=== PATIENT | female | born 1975 | race African-American/Black ===

== ENCOUNTER 2017-03-29 16:51 | Emergency (ER) | payer SELFPAY ==
[2015-02-15 07:26] VITALS: BP 140/91
[~2017-03-29] VITALS: Ht 160 cm; Wt 81.6 kg
[~2017-03-29 16:51] MED LIST: HYDR12.58 PO; IBUP-1060 PO; ONDA4TAB10 PO; OSEL75CA PO
[2017-03-29] MEDS ORDERED: HYDR-971 PO (17:47)
[2017-03-29] MEDS ORDERED: NAPR500T8 PO (17:47)
[2017-03-29] MEDS ORDERED: GABA-586 PO (17:47)
[2017-03-29] MEDS ORDERED: METH4TAB2 PO (17:47)
--- NOTE | 2017-03-29 17:47 | PHYS DOC ---
Past Medical History Past Medical History: Hypertension Additional Past Medical Histor: PSORIASIS, HEART MURMUR Past Surgical History: No Surgical History Alcohol Use: Occasionally Drug Use: Marijuana Adult General Chief Complaint Chief Complaint: SKIN PROBLEM HPI HPI Patient is a 41 year old female with history of psoriasis, hypertension, chronic bilateral lower extremity pain, and chronic pain from psoriasis who presents today complaining of moderate to severe chronic pain throughout her body especially her bilateral lower extremities due to psoriasis. She states she is not even able to ambulate, she states she has had to crawl in her house due to pain amazingly she drove herself to the ED and has ambulated in the ED. Patient denies any injuries. Review of Systems Review of Systems Constitutional: Denies fever or chills [] Eyes: Denies change in visual acuity, redness, or eye pain [] HENT: Denies nasal congestion or sore throat [] Respiratory: Denies cough or shortness of breath [] Cardiovascular: No additional information not addressed in HPI [] GI: Denies abdominal pain, nausea, vomiting, bloody stools or diarrhea [] : Denies dysuria or hematuria [] Musculoskeletal: Chronic musculoskeletal pain due to psoriasis Integument: Denies rash or skin lesions [] Neurologic: Denies headache, focal weakness or sensory changes [] Endocrine: Denies polyuria or polydipsia [] Allergies Allergies Allergies Coded Allergies Type Severity Reaction Last Updated Verified Penicillins Allergy Intermediate Hives 06/12/14 No clindamycin Allergy Intermediate Hives 06/12/14 No morphine Allergy Intermediate Hives 06/12/14 No doxycycline Allergy Unknown Itching&welts, Nausea. 12/12/14 Yes Physical Exam Physical Exam Constitutional: Well developed, well nourished, no acute distress, non-toxic appearance. [] HENT: Normocephalic, atraumatic, bilateral external ears normal, oropharynx moist, no oral exudates, nose normal. [] Eyes: PERRLA, EOMI, conjunctiva normal, no discharge. [] Neck: Normal range of motion, no tenderness, supple, no stridor. [] Cardiovascular:Heart rate regular rhythm, no murmur [] Lungs & Thorax: Bilateral breath sounds clear to auscultation [] Abdomen: Bowel sounds normal, soft, no tenderness, no masses, no pulsatile masses. [] Skin: Warm, dry, no erythema, no rash. [] Back: No tenderness, no CVA tenderness. [] Extremities: No tenderness, no cyanosis, no clubbing, ROM intact, no edema. [] Neurologic: Alert and oriented X 3, normal motor function, normal sensory function, no focal deficits noted. [] Psychologic: Affect normal, judgement normal, mood normal. [] Current Patient Data Vital Signs Vital Signs Date Time Temp Pulse Resp B/P (MAP) Pulse Ox O2 Delivery O2 Flow Rate FiO2 03/29/17 17:03 98.1 76 20 164/89 (114) 98 Room Air 98.1 EKG EKG [] Radiology/Procedures Radiology/Procedures [] Course & Med Decision Making Course & Med Decision Making Pertinent Labs and Imaging studies reviewed. (See chart for details) This is a 41-year-old female patient who presents to the ED with complaints of chronic musculoskeletal pain throughout her body due to psoriasis. See history of present illness for further information. Patient is requesting something for pain stating she has taken multiple sodv-ztp-vhhxlst medications with no relief. Informed patient I will not send her home with any prescription narcotic medicines. I offered her hydrocodone in the ED. She states she is driving. Gave her prescription for 2 hydrocodone tablets, naproxen gabapentin and provided instructions to follow-up with a pain clinic, PCP, bill poster installer and chief controller tower. We did give her the doctor's list. Dragon Disclaimer Dragon Disclaimer This electronic medical record was generated, in whole or in part, using a voice recognition dictation system. Departure Departure Impression: Primary Impression: Chronic musculoskeletal pain Disposition: HOME, SELF-CARE Condition: STABLE Referrals: NO PCP (PCP) MINH AGUAYO MD Follow-up with the pain clinic as soon as you can FUENTES KILPATRICK MD Follow-up for chronic psoriasis Patient Instructions: Musculoskeletal Pain Additional Instructions: You were seen for chronic musculoskeletal pain. We recommend you follow-up with pain clinic doctor as soon as possible. You also need to establish care with a chief controller tower for chronic psoriasis as well as a bill poster installer and a primary care doctor. Scripts Naproxen (NAPROXEN) 500 Mg Tablet.dr 1 TAB PO BID, #60 TAB 2 Refills Prov: BRANDIE BURRELL APRN 03/29/17 Gabapentin (GABAPENTIN) 300 Mg Capsule 300 MG PO TID, #30 CAP Prov: BRANDIE BURRELL APRN 03/29/17 Methylprednisolone (MEDROL) 4 Mg Tab.ds.pk 1 PKG PO UD, #1 PKG Prov: BRANDIE BURRELL APRN 03/29/17 Hydrocodone/Apap 5-325 (NORCO 5-325 TABLET) 1 Each Tablet 1-2 TAB PO Q4-6HRS, #2 TAB Prov: BRANDIE BURRELL APRN 03/29/17 BRANDIE BURRELL APRN Mar 29, 2017 17:47
== END 2017-03-29 18:05 | disposition home or self-care (01) ==
LOC: ER 16:51
DX: G89.29 Other chronic pain (principal); M79.1 Myalgia; L40.9 Psoriasis, unspecified; I10 Essential (primary) hypertension; F12.10 Cannabis abuse, uncomplicated; Z88.0 Allergy status to penicillin; Z88.1 Allergy status to other antibiotic agents; Z88.6 Allergy status to analgesic agent
CPT/HCPCS: 99283

== ENCOUNTER 2018-05-11 18:09 | Emergency (ER) | payer SELFPAY ==
[~2018-05-11] VITALS: Ht 160 cm; Wt 81.6 kg
[~2018-05-11 18:09] MED LIST changes: +GABA-586 PO; +HYDR-971 PO; +METH4TAB2 PO; +NAPR500T8 PO
[2018-05-11 18:50] VITALS: BP 138/88
[2018-05-11] MEDS ORDERED: IV NORMAL SALINE 1000ML BAG 1,000 ML IV SCH (19:51)
[2018-05-11 20:01] LABS: BILIRUBIN,URINE NEGATIVE (NEG); CLARITY,URINE CLOUDY; COLOR,URINE YELLOW; NITRITE,URINE NEGATIVE (NEG); PH,URINE 6.5; PROTEIN,URINE NEGATIVE (NEG-TRACE); UROBILINOGEN,URINE 0.2 mg/dL (0.2 mg/dL)
--- NOTE | 2018-05-11 20:02 | PHYS DOC ---
Past Medical History Past Medical History: Hypertension Additional Past Medical Histor: PSORIASIS, HEART MURMUR Past Surgical History: No Surgical History Smoking: Cigarettes, Less than 1pk/day Alcohol Use: Occasionally Drug Use: None Adult General Chief Complaint Chief Complaint: CHEST PAIN [facility] HPI Patient is a 42 year-old female who presents to the emergency department for evaluation. She states that she "just hasn't felt well" for the past week. She reports generalized diffuse myalgias. She has had some chest pain as well, across her entire chest. There are no alleviating or exacerbating factors to her chest discomfort, exertion or deep breathing did not seem to worsen her pain. There is no significant radiation of her pain. She has had some generalized myalgias, but states her chest discomfort feels somewhat different. She denies significant shortness of breath, dizziness, lightheadedness, numbness, focal weakness. She states that she has been urinating less frequently than normal, but has not had any dysuria. Other than as stated above, there are no alleviating or exacerbating factors to her symptoms. Patient denies a family history of premature onset coronary artery disease. Review of Systems Review of Systems Constitutional: Denies fever or chills [] Eyes: Denies change in visual acuity, redness, or eye pain [] HENT: Denies nasal congestion or sore throat [] Respiratory: Denies cough or shortness of breath [] Cardiovascular: No additional information not addressed in HPI [] GI: Denies abdominal pain, nausea, vomiting, bloody stools or diarrhea [] : Denies dysuria or hematuria [] Musculoskeletal: Denies back pain or joint pain [] Integument: Denies rash or skin lesions [] Neurologic: Denies headache, focal weakness or sensory changes [] Endocrine: Denies polyuria or polydipsia [] All other systems were reviewed and found to be within normal limits, except as documented in this note. Current Medications Current Medications Current Medications Medications (Trade) Dose Ordered Sig/Reggie Start Time Stop Time Status Last Admin Dose Admin Sodium Chloride 1,000 ml @ 1,000 mls/hr Q1H 05/11/18 19:51 05/11/18 20:50 DC 05/11/18 20:04 1,000 MLS/HR Allergies Allergies Allergies Coded Allergies Type Severity Reaction Last Updated Verified Penicillins Allergy Intermediate Hives 06/12/14 No clindamycin Allergy Intermediate Hives 06/12/14 No morphine Allergy Intermediate Hives 06/12/14 No doxycycline Allergy Unknown Itching&welts, Nausea. 12/12/14 Yes Physical Exam Physical Exam PHYSICAL EXAM: CONSTITUTIONAL: Well developed, well nourished HEAD: normocephalic, atraumatic EENT: PERRL, EOMI. Conjunctivae normal color, sclerae non-icteric; moist mucous membranes. NECK: Supple, non-tender; no meningismus. LUNGS: Lungs CTA, breathing even and unlabored. Normal air movement. HEART: Regular rate and rhythm, no murmur CHEST: No deformity; there is diffuse tenderness to palpation of the anterior chest wall, which is not exactly reproduce the patient's pain. ABDOMEN: The abdomen is soft, and non-tender, no masses or bruits. EXTREM: Normal ROM; no deformity, no calf tenderness. Normal pulses palpable in all extremities. There is no pedal edema. SKIN: No rash; no diaphoresis NEURO: Alert; normal speech and cognition; CN's grossly intact; strength grossly intact without focal deficit. BACK: No CVA TTP. Current Patient Data Vital Signs Vital Signs Date Time Temp Pulse Resp B/P (MAP) Pulse Ox O2 Delivery O2 Flow Rate FiO2 05/11/18 18:50 98.1 101 20 138/88 (105) 99 Room Air 98.1 Lab Values Laboratory Tests Test 05/11/18 19:10 05/11/18 19:51 Urine Collection Type Unknown Urine Color Yellow Urine Clarity Cloudy Urine pH 6.5 Urine Specific [place] 1.020 Urine Protein Negative mg/dL (NEG-TRACE) Urine Glucose (UA) Negative mg/dL (NEG) Urine Ketones (Stick) Negative mg/dL (NEG) Urine Blood Negative (NEG) Urine Nitrite Negative (NEG) Urine Bilirubin Negative (NEG) Urine Urobilinogen Dipstick 0.2 mg/dL (0.2 mg/dL) Urine Leukocyte Esterase Small (NEG) Urine RBC 0 /HPF (0-2) Urine WBC Occ /HPF (0-4) Urine Squamous Epithelial Cells Mod /LPF Urine Bacteria 0 /HPF (0-FEW) Urine Mucus Mod /LPF Urine Test Negative (NEG) White Blood Count 5.3 x10^3/uL (4.0-11.0) Red Blood Count 3.56 x10^6/uL (3.50-5.40) Hemoglobin 11.6 g/dL (12.0-15.5) L Hematocrit 34.6 % (36.0-47.0) L Mean Corpuscular Volume 97 fL (79-100) Mean Corpuscular Hemoglobin 33 pg (25-35) Mean Corpuscular Hemoglobin Concent 34 g/dL (31-37) Red Cell Distribution Width 13.2 % (11.5-14.5) Platelet Count 190 x10^3/uL (140-400) Neutrophils (%) (Auto) 45 % (31-73) Lymphocytes (%) (Auto) 44 % (24-48) Monocytes (%) (Auto) 9 % (0-9) Eosinophils (%) (Auto) 2 % (0-3) Basophils (%) (Auto) 1 % (0-3) Neutrophils # (Auto) 2.4 x10^3uL (1.8-7.7) Lymphocytes # (Auto) 2.3 x10^3/uL (1.0-4.8) Monocytes # (Auto) 0.5 x10^3/uL (0.0-1.1) Eosinophils # (Auto) 0.1 x10^3/uL (0.0-0.7) Basophils # (Auto) 0.0 x10^3/uL (0.0-0.2) Erythrocyte Sedimentation Rate 38 (0-25) H Sodium Level 139 mmol/L (136-145) Potassium Level 3.3 mmol/L (3.5-5.1) L Chloride Level 105 mmol/L (98-107) Carbon Dioxide Level 32 mmol/L (21-32) Anion Gap 2 (6-14) L Blood Urea Nitrogen 13 mg/dL (7-20) Creatinine 1.0 mg/dL (0.6-1.0) Estimated GFR (Cockcroft-Gault) 73.9 BUN/Creatinine Ratio 13 (6-20) Glucose Level 96 mg/dL (70-99) Calcium Level 8.9 mg/dL (8.5-10.1) Magnesium Level 1.9 mg/dL (1.8-2.4) Total Bilirubin 0.2 mg/dL (0.2-1.0) Aspartate Amino Transferase (AST) 14 U/L (15-37) L Alanine Aminotransferase (ALT) 12 U/L (14-59) L Alkaline Phosphatase 86 U/L (46-116) Creatine Kinase 80 U/L (26-192) Creatine Kinase MB (Mass) < 0.5 ng/mL (0.0-3.6) Creatine Kinase MB Relative Index % (0-4) Troponin I Quantitative < 0.017 ng/mL (0.000-0.055) C-Reactive Protein, Quantitative 2.2 mg/L (0-3.3) JN-Nox-Y-Type Natriuretic Peptide 42 pg/mL (0-124) Total Protein 7.9 g/dL (6.4-8.2) Albumin 3.4 g/dL (3.4-5.0) Albumin/Globulin Ratio 0.8 (1.0-1.7) L Lipase 264 U/L (73-393) Thyroid Stimulating Hormone (TSH) 1.299 uIU/mL (0.358-3.74) Free Thyroxine 1.00 ng/dL (0.76-1.46) Laboratory Tests 05/11/18 19:51 Laboratory Tests 05/11/18 19:51 EKG EKG Normal sinus rhythm a rate of 86 bpm, normal axis, normal intervals, nonspecific ST/T changes. Radiology/Procedures Radiology/Procedures [ER physician preliminary chest x-ray interpretation: No acute disease.] Course & Med Decision Making Course & Med Decision Making Pertinent Labs and Imaging studies reviewed. (See chart for details) [I had an extensive discussion with the patient about the limitations of ER cardiac evaluation in definitively ruling out acute coronary syndrome. We discussed limitation of the ER evaluation and a singe ED troponin in r/o AMI, and the risks involved in missed diagnosis of acute coronary syndrome including or permanent debility. I recommended overnight observation for further formal cardiac evaluation to rule out acute coronary syndrome. After expressing understanding of the limitations of ER cardiac evaluation, as well as the risks of missed diagnosis, the patient declined further cardiac evaluation at this time. The patient was mentally competent, and given opportunity to ask questions about the diagnosis and recommended plan of care. I stressed the importance of outpatient follow-up, and returning to the emergency department for new or worsening symptoms, or if the patient is agreeable to undergo further cardiac evaluation. Clinical suspicion for acute coronary syndrome is extremely low. Patient remains stable. I discussed test results, the need for close follow-up, and return precautions.] Dragon Disclaimer Dragon Disclaimer This electronic medical record was generated, in whole or in part, using a voice recognition dictation system. Departure Departure Impression: Primary Impression: Myalgia Additional Impression: Atypical chest pain Disposition: HOME, SELF-CARE Condition: STABLE Referrals: NO PCP (PCP) Patient Instructions: Chest Pain (Nonspecific), Myalgia, Adult Additional Instructions: Ibuprofen 400-600 mg every 6 hours may help improve your symptoms. Applying a heating pad to the affected area may help improve your symptoms. The prescribed medications may cause drowsiness-use caution while taking. Use the provided list of primary care providers to help schedule a follow-up appointment with her primary care provider for further evaluation of your symptoms. Scripts Cyclobenzaprine Hcl (CYCLOBENZAPRINE HCL) 10 Mg Tablet 1 TAB PO TID PRN for PAIN, #30 TAB Prov: CHRISTINA REDDY MD 05/11/18 Problem Qualifiers CHRISTINA REDDY MD May 11, 2018 20:02
[2018-05-11 20:03] LABS: BASO % 1 % (0-3); EOS # 0.1 x10^3/uL (0.0-0.7); EOS % 2 % (0-3); HEMATOCRIT 34.6 % (36.0-47.0); HEMOGLOBIN 11.6 g/dL (12.0-15.5); LYMPH # 2.3 x10^3/uL (1.0-4.8); LYMPH % 44 % (24-48); MEAN CORPUSCULAR HEMOGLOBIN 33 pg (25-35); MEAN CORPUSCULAR HGB CONC 34 g/dL (31-37); MEAN CORPUSCULAR VOLUME 97 fL (79-100); MONO # 0.5 x10^3/uL (0.0-1.1); MONO % 9 % (0-9); NEUT # 2.4 x10^3uL (1.8-7.7); NEUT % 45 % (31-73); PLATELET COUNT 190 x10^3/uL (140-400); RED BLOOD COUNT 3.56 x10^6/uL (3.50-5.40); RED CELL DISTRIBUTION WIDTH 13.2 % (11.5-14.5); WHITE BLOOD COUNT 5.3 x10^3/uL (4.0-11.0)
[2018-05-11 20:14] LABS: BACTERIA,URINE 0 /HPF (0-FEW); RBC,URINE 0 /HPF (0-2); SQUAMOUS EPITHELIAL CELL,UR MOD /LPF; WBC,URINE OCC /HPF (0-4)
[2018-05-11 20:17] LABS: C-REACTIVE PROTEIN 2.2 mg/L (0-3.3); CALCIUM 8.9 mg/dL (8.5-10.1); GFR 73.9; POTASSIUM 3.3 mmol/L (3.5-5.1)
[2018-05-11 20:19] LABS: U PREG PATIENT NEGATIVE (NEG)
[2018-05-11 20:22] LABS: ALBUMIN 3.4 g/dL (3.4-5.0); ALBUMIN/GLOBULIN RATIO 0.8 (1.0-1.7); MAGNESIUM 1.9 mg/dL (1.8-2.4); TOTAL BILIRUBIN 0.2 mg/dL (0.2-1.0); TOTAL PROTEIN 7.9 g/dL (6.4-8.2)
[2018-05-11 20:28] LABS: THYROID STIM HORMONE (TSH) 1.299 uIU/mL (0.358-3.74)
[2018-05-11 20:32] LABS: CREATINE KINASE 80 U/L (26-192)
--- NOTE | 2018-05-11 20:42 | EKG ---
[facility] [address] [place] [address] Test Date: 2018-05-11 Test Time: 19:08:27 Pat Name: ADINA MEYER Department: Room: Gender: F Medical Data Analyst: : 1975 Requested By: CHRISTINA REDDY Order Number: [id number] Reading MD: Asael Locke MD Measurements Intervals [place] Rate: 86 P: 33 LA: 184 QRS: 7 QRSD: 76 T: 38 QT: 342 QTc: 412 Interpretive Statements SINUS RHYTHM LEFT ATRIAL ABNORMALITY QRS(T) CONTOUR ABNORMALITY CONSIDER ANTEROSEPTAL INFARCT ABNORMAL ECG Electronically Signed On 05-12-2018 15:29:38 CDT by Asael Locke MD
[2018-05-11] MEDS ORDERED: CYCL10TA2 PO (21:47)
[2018-05-11] MEDS ORDERED: KETOROLAC 30 MG/ML VIAL. IV ONE (22:00)
[2018-05-11] MEDS ORDERED: ONDANSETRON PF 4 MG/2 ML VIAL. IV ONE (22:00)
--- NOTE | 2018-05-12 08:27 | RAD ---
EXAM: PA and lateral views of the chest DATE: 05/11/2018 8:00 PM INDICATION: CHEST PAIN AND NO ABLE TO URINATE SINCE WEDNESDAY , MUSCLE SORENESS x1 wks COMPARISON: No Prior FINDINGS: The heart is not enlarged. Mediastinal and hilar contours are normal. No focal parenchymal airspace opacity. No pleural effusion or pneumothorax. IMPRESSION: 1. No radiographic evidence for acute cardiopulmonary process. Electronically signed by: Pascual Scales MD (05/12/2018 8:23 AM) [facility]
== END 2018-05-11 22:07 | disposition home or self-care (01) ==
LOC: ER 18:09
DX: R07.89 Other chest pain (principal); M79.1 Myalgia; I10 Essential (primary) hypertension; F17.210 Nicotine dependence, cigarettes, uncomplicated; Z88.0 Allergy status to penicillin; Z88.1 Allergy status to other antibiotic agents; Z88.5 Allergy status to narcotic agent
CPT/HCPCS: 36415; 71046; 80053; 81001; 81025; 82553; 83690; 83735; 83880; 84439; 84443; 84484; 85025; 85651; 86140; 93005; 99285; J1885; J2405; J7030

== ENCOUNTER 2019-08-09 05:30 | Emergency (ER) | payer SELFPAY ==
[~2019-08-09] VITALS: Ht 160 cm; Wt 82.6 kg
[~2019-08-09 05:30] MED LIST changes: +CYCL10TA2 PO; -GABA-586 PO; +GABA300C18 PO; +HYDR-3164 PO; -HYDR-971 PO
[2019-08-09] MEDS ORDERED: NITROGLYCERIN SUBLINGUAL 0.4 MG BOTTLE OF 25. SL PRN (05:45)
--- NOTE | 2019-08-09 05:49 | PHYS DOC ---
Past Medical History Past Medical History: Hypertension Additional Past Medical Histor: PSORIASIS, HEART MURMUR (SENIA DAVIS Jr., DO) Past Surgical History: No Surgical History (SENIA DAVIS Jr., DO) Alcohol Use: Occasionally Drug Use: None (SENIA DAVIS Jr., DO) Adult General Chief Complaint Chief Complaint: CHEST PAIN-NON CARDIAC NATURE HPI HPI Patient is a 44-year-old female who presents with complaint of midsternal chest pain that started 2 days ago. Patient states that pain is been fairly constant but has been waxing and waning. She rates pain at a 9 out of 10. She does indicate that she has had some nausea but no vomiting. She denies any diapho resis. She describes pain as sharp in nature. She states that nothing is improving the pain. She does indicate that she has a family history of cardiac disease.[] (SENIA DAVIS Jr., DO) Review of Systems Review of Systems Constitutional: Denies fever or chills [] Respiratory: Denies cough or shortness of breath [] Cardiovascular: No additional information not addressed in HPI [] GI: Denies abdominal pain, vomiting or diarrhea [] Neurologic: Denies headache, focal weakness or sensory changes [] All other systems were reviewed and found to be within normal limits, except as documented in this note. (SENIA DAVIS Jr., DO) Current Medications Current Medications Current Medications Medications (Trade) Dose Ordered Sig/Reggie Start Time Stop Time Status Last Admin Dose Admin Info (CONTRAST GIVEN -- Rx MONITORING) 1 each PRN DAILY PRN 08/09/19 07:15 08/11/19 07:14 Iohexol (Omnipaque 350 Mg/ml) 100 ml 1X ONCE 08/09/19 07:15 08/09/19 07:16 DC 08/09/19 07:27 100 ML Nitroglycerin (Nitrostat) 0.4 mg PRN Q5MIN PRN 08/09/19 05:45 08/10/19 05:44 08/09/19 05:55 0.4 MG Sodium Chloride 1,000 ml @ 1,000 mls/hr Q1H 08/09/19 06:00 08/09/19 06:59 DC (JENFIFER RIVERA DO) Allergies Allergies Allergies Coded Allergies Type Severity Reaction Last Updated Verified Penicillins Allergy Intermediate Hives 06/12/14 No clindamycin Allergy Intermediate Hives 06/12/14 No morphine Allergy Intermediate Hives 06/12/14 No doxycycline Allergy Unknown Itching&welts, Nausea. 12/12/14 Yes (JENIFFER RIVERA DO) Physical Exam Physical Exam Constitutional: Well developed, well nourished, no acute distress, non-toxic appearance. [] HENT: Normocephalic, atraumatic, bilateral external ears normal, oropharynx moist, no oral exudates, nose normal. [] Eyes: PERRLA, EOMI, conjunctiva normal, no discharge. [] Neck: Normal range of motion, no tenderness, supple. [] Cardiovascular: Regular rate and rhythm[] Lungs & Thorax: Bilateral breath sounds clear to auscultation [] Abdomen: Bowel sounds normal, soft, no tenderness. [] Skin: Warm, dry, no erythema, no rash. [] Extremities: No tenderness, no cyanosis, no clubbing, ROM intact. [] Neurologic: Alert and oriented X 3, no focal deficits noted. [] (SENIA DAVIS Jr., DO) Current Patient Data Vital Signs Vital Signs Date Time Temp Pulse Resp B/P (MAP) Pulse Ox O2 Delivery O2 Flow Rate FiO2 08/09/19 06:41 89 17 170/115 (133) 97 Room Air 08/09/19 05:31 97.7 97.7 (JENIFFER RIVERA DO) Lab Values Laboratory Tests Test 08/09/19 05:40 08/09/19 06:00 08/09/19 06:05 White Blood Count 6.7 x10^3/uL (4.0-11.0) Red Blood Count 4.06 x10^6/uL (3.50-5.40) Hemoglobin 12.8 g/dL (12.0-15.5) Hematocrit 38.9 % (36.0-47.0) Mean Corpuscular Volume 96 fL (79-100) Mean Corpuscular Hemoglobin 32 pg (25-35) Mean Corpuscular Hemoglobin Concent 33 g/dL (31-37) Red Cell Distribution Width 14.3 % (11.5-14.5) Platelet Count 216 x10^3/uL (140-400) Neutrophils (%) (Auto) 41 % (31-73) Lymphocytes (%) (Auto) 49 % (24-48) H Monocytes (%) (Auto) 7 % (0-9) Eosinophils (%) (Auto) 3 % (0-3) Basophils (%) (Auto) 1 % (0-3) Neutrophils # (Auto) 2.7 x10^3/uL (1.8-7.7) Lymphocytes # (Auto) 3.3 x10^3/uL (1.0-4.8) Monocytes # (Auto) 0.5 x10^3/uL (0.0-1.1) Eosinophils # (Auto) 0.2 x10^3/uL (0.0-0.7) Basophils # (Auto) 0.1 x10^3/uL (0.0-0.2) D-Dimer (Ara) 0.74 ug/mlFEU (0.00-0.50) H Sodium Level 144 mmol/L (136-145) Potassium Level 3.4 mmol/L (3.5-5.1) L Chloride Level 107 mmol/L (98-107) Carbon Dioxide Level 28 mmol/L (21-32) Anion Gap 9 (6-14) Blood Urea Nitrogen 13 mg/dL (7-20) Creatinine 0.9 mg/dL (0.6-1.0) Estimated GFR (Cockcroft-Gault) 82.7 BUN/Creatinine Ratio 14 (6-20) Glucose Level 103 mg/dL (70-99) H Calcium Level 8.9 mg/dL (8.5-10.1) Magnesium Level 1.6 mg/dL (1.8-2.4) L Total Bilirubin 0.2 mg/dL (0.2-1.0) Aspartate Amino Transferase (AST) 16 U/L (15-37) Alanine Aminotransferase (ALT) 10 U/L (14-59) L Alkaline Phosphatase 94 U/L (46-116) Troponin I Quantitative < 0.017 ng/mL (0.000-0.055) LH-Bqb-M-Type Natriuretic Peptide 82 pg/mL (0-124) Total Protein 8.3 g/dL (6.4-8.2) H Albumin 3.4 g/dL (3.4-5.0) Albumin/Globulin Ratio 0.7 (1.0-1.7) L Urine Collection Type Unknown Urine Color Yellow Urine Clarity Clear Urine pH 7.0 Urine Specific [place] 1.020 Urine Protein Negative mg/dL (NEG-TRACE) Urine Glucose (UA) Negative mg/dL (NEG) Urine Ketones (Stick) Negative mg/dL (NEG) Urine Blood Negative (NEG) Urine Nitrite Negative (NEG) Urine Bilirubin Negative (NEG) Urine Urobilinogen Dipstick 0.2 mg/dL (0.2 mg/dL) Urine Leukocyte Esterase Small (NEG) Urine RBC 0 /HPF (0-2) Urine WBC 1-4 /HPF (0-4) Urine Squamous Epithelial Cells Many /LPF Urine Bacteria Moderate /HPF (0-FEW) POC Urine HCG, Qualitative Hcg negative (Negative) Laboratory Tests 08/09/19 05:40 Laboratory Tests 08/09/19 05:40 (JENIFFER RIVERA DO) EKG EKG EKG demonstrates normal sinus rhythm with rate of 79.[] (SENIA DAVIS Jr., DO) Radiology/Procedures Radiology/Procedures [] (SENIA DAVIS Jr., DO) Radiology/Procedures [facility] [address] [place] [address] IMAGING REPORT Signed PATIENT: ADINA MEYER ACCOUNT: [id number] : 1975 LOCATION: ER AGE: 44 SEX: F EXAM STATUS: REG ER ORD. PHYSICIAN: JENIFFER RIVERA DO REASON: chest pain, soa, hypertensive PROCEDURE: CT ANGIOGRAPHY CHEST CT ANGIOGRAPHY CHEST INDICATION: Chest pain, dyspnea, hypertension. Comparison: Chest radiograph 08/09/2019. TECHNIQUE: Following the uneventful administration of intravenous contrast, 100 cc Omnipaque 350, axial CT sections were obtained through the lungs and upper abdomen. Multiplanar reconstructions and MIP images were obtained. PQRS compliance statement: One or more of the following individualized dose reduction techniques were utilized for this examination: 1. Automated exposure control 2. Adjustment of the mA and/or kV according to patient size 3. Use of iterative reconstruction technique FINDINGS: Pulmonary vasculature: No evidence of pulmonary thromboembolic disease. Lungs and Airways: No pulmonary mass or consolidation. No abnormality of the central airways. Pleura: The pleural spaces are normal. Heart and Mediastinum: The visualized thyroid is normal in size and attenuation. No axillary or supraclavicular lymphadenopathy. No mediastinal, hilar or retrocrural lymphadenopathy. The heart and pericardium are within normal limits. The great vessels of the thorax are normal. Abdomen: Limited images through the upper abdomen show no abnormality of the visualized organs. Bones and Soft Tissues: The visualized bones and chest wall soft tissues are within normal limits. IMPRESSION: 1. No evidence of pulmonary thromboembolic disease. 2. No pulmonary mass or consolidation Electronically signed by: Zachary Freeman MD (08/09/2019 7:48 AM) [id number] DICTATED and SIGNED BY: ZACHARY FREEMAN MD DATE: 08/09/19 0748 (JENIFFER RIVERA DO) Course & Med Decision Making Course & Med Decision Making Pertinent Labs and Imaging studies reviewed. (See chart for details) [] (SENIA DAVIS Jr., DO) Course & Med Decision Making Patient;s chest pain is reproducible to palpation, she describes pain as sharp, hurt worse with cough or taking deep breaths or moving her shoulder around. This is noncardiac chest pain. CT scan of her chest did not show any blood clots or infection. EKG wa normal, her diagnostics lab work were normal as well. Patient will be discharged to home, she will need to follow with her family doctor. Her blood pressure was improved. (JENIFFER RIVERA DO) Dragon Disclaimer Dragon Disclaimer This electronic medical record was generated, in whole or in part, using a voice recognition dictation system. (SENIA DAVIS Jr., DO) Departure Departure Impression: Primary Impression: Chest pain Disposition: 01 HOME, SELF-CARE Condition: IMPROVED Referrals: NO PCP (PCP) follow up with your family doctor for further evaluation and treatment Patient Instructions: Chest Pain (Nonspecific) Problem Qualifiers Primary Impression: Chest pain Chest pain type: unspecified Qualified Codes: R07.9 - Chest pain, un specified SENIA DAVIS Jr., DO Aug 09, 2019 05:49 JENIFFER RIVERA DO Aug 09, 2019 08:06
[2019-08-09] MEDS ORDERED: IV NORMAL SALINE 1000ML BAG 1,000 ML IV SCH (06:00)
[2019-08-09 06:20] LABS: ALBUMIN 3.4 g/dL (3.4-5.0); ALBUMIN/GLOBULIN RATIO 0.7 (1.0-1.7); CALCIUM 8.9 mg/dL (8.5-10.1); CREATININE 0.9 mg/dL (0.6-1.0); GFR 82.7; MAGNESIUM 1.6 mg/dL (1.8-2.4); TOTAL BILIRUBIN 0.2 mg/dL (0.2-1.0); TOTAL PROTEIN 8.3 g/dL (6.4-8.2)
--- NOTE | 2019-08-09 06:23 | RAD ---
PORTABLE CHEST 1V History: Chest pain Comparison: May 11, 2018 Findings: No consolidation or pleural effusion. Normal heart size. Impression: 1. No acute cardiopulmonary process. Electronically signed by: Jorge Bernstein DO (08/09/2019 6:21 AM) [facility]
[2019-08-09 06:28] LABS: BILIRUBIN,URINE NEGATIVE (NEG); CLARITY,URINE CLEAR; COLOR,URINE YELLOW; NITRITE,URINE NEGATIVE (NEG); PROTEIN,URINE NEGATIVE (NEG-TRACE); UROBILINOGEN,URINE 0.2 mg/dL (0.2 mg/dL)
[2019-08-09 06:36] LABS: RBC,URINE 0 /HPF (0-2)
[2019-08-09 06:37] LABS: POTASSIUM 3.4 mmol/L (3.5-5.1)
[2019-08-09 06:37] LABS: BACTERIA,URINE MODERATE /HPF (0-FEW); SQUAMOUS EPITHELIAL CELL,UR MANY /LPF
[2019-08-09] MEDS ORDERED: CONTRAST GIVEN. MC PRN (07:15)
[2019-08-09] MEDS ORDERED: IOHEXOL 350 MG/ML 100 ML VIAL. IV ONE (07:15)
--- NOTE | 2019-08-09 07:19 | EKG ---
[facility] [address] [place] [address] Test Date: 2019-08-09 Test Time: 05:41:37 Pat Name: ADINA MEYER Department: Room: Gender: F Personal Lines Underwriter: : 1975 Requested By: SENIA DAVIS Order Number: [id number] Reading MD: Measurements Intervals [place] Rate: 79 P: 20 MN: 186 QRS: -8 QRSD: 76 T: 38 QT: 362 QTc: 416 Interpretive Statements SINUS RHYTHM LEFT ATRIAL ABNORMALITY LEFTWARD AXIS ABNORMAL ECG RI6.01 No previous ECG available for comparison
[2019-08-09 07:36] LABS: BASO # 0.1 x10^3/uL (0.0-0.2); BASO % 1 % (0-3); EOS # 0.2 x10^3/uL (0.0-0.7); EOS % 3 % (0-3); HEMATOCRIT 38.9 % (36.0-47.0); HEMOGLOBIN 12.8 g/dL (12.0-15.5); LYMPH # 3.3 x10^3/uL (1.0-4.8); LYMPH % 49 % (24-48); MEAN CORPUSCULAR HEMOGLOBIN 32 pg (25-35); MEAN CORPUSCULAR HGB CONC 33 g/dL (31-37); MEAN CORPUSCULAR VOLUME 96 fL (79-100); MONO # 0.5 x10^3/uL (0.0-1.1); MONO % 7 % (0-9); NEUT # 2.7 x10^3/uL (1.8-7.7); NEUT % 41 % (31-73); PLATELET COUNT 216 x10^3/uL (140-400); RED BLOOD COUNT 4.06 x10^6/uL (3.50-5.40); RED CELL DISTRIBUTION WIDTH 14.3 % (11.5-14.5); WHITE BLOOD COUNT 6.7 x10^3/uL (4.0-11.0)
--- NOTE | 2019-08-09 07:51 | RAD ---
CT ANGIOGRAPHY CHEST INDICATION: Chest pain, dyspnea, hypertension. Comparison: Chest radiograph 08/09/2019. TECHNIQUE: Following the uneventful administration of intravenous contrast, 100 cc Omnipaque 350, axial CT sections were obtained through the lungs and upper abdomen. Multiplanar reconstructions and MIP images were obtained. PQRS compliance statement: One or more of the following individualized dose reduction techniques were utilized for this examination: 1. Automated exposure control 2. Adjustment of the mA and/or kV according to patient size 3. Use of iterative reconstruction technique FINDINGS: Pulmonary vasculature: No evidence of pulmonary thromboembolic disease. Lungs and Airways: No pulmonary mass or consolidation. No abnormality of the central airways. Pleura: The pleural spaces are normal. Heart and Mediastinum: The visualized thyroid is normal in size and attenuation. No axillary or supraclavicular lymphadenopathy. No mediastinal, hilar or retrocrural lymphadenopathy. The heart and pericardium are within normal limits. The great vessels of the thorax are normal. Abdomen: Limited images through the upper abdomen show no abnormality of the visualized organs. Bones and Soft Tissues: The visualized bones and chest wall soft tissues are within normal limits. IMPRESSION: 1. No evidence of pulmonary thromboembolic disease. 2. No pulmonary mass or consolidation Electronically signed by: Bam Freeman MD (08/09/2019 7:48 AM) [facility]
[2019-08-09 08:19] VITALS: BP 174/84
== END 2019-08-09 08:20 | disposition home or self-care (01) ==
LOC: ER 05:30
DX: R07.89 Other chest pain (principal); I10 Essential (primary) hypertension; Z88.1 Allergy status to other antibiotic agents
CPT/HCPCS: 36415; 71045; 71275; 80053; 81001; 81025; 83735; 83880; 84484; 85025; 85379; 87086; 93005; 99285; Q9967